=== PATIENT | female | born 1935 | race Caucasian/White ===

== ENCOUNTER 2017-01-13 14:38 | Inpatient (IN) ==
[2017-01-13] MEDS ORDERED: SODIUM CHLORIDE 0.9% 1,000 ML IV STA (14:54)
[2017-01-13 16:12] LABS: Basophils # 0.1 10*3/uL (0.0-0.2); Basophils % 0.8 % (0.0-0.8); Eosinophils # 0.5 10*3/uL (0.0-0.87); Eosinophils % 5.4 % (0.00-10.9); Hematocrit 30.9 VOL% (35.7-47.0); Hemoglobin 10.3 GM/DL (12.0-16.0); Immature Granulocytes % 0.4 %; Immature Granulocytes Absolute 0.04 #; Lymphocytes # 1.7 10*3/uL (1.4-4.0); Lymphocytes % 18.7 % (21.3-54.2); Mean Corpuscular HGB Conc 33.3 GM/DL (32-36); Mean Corpuscular Hemoglobin 29 PG (27-34); Mean Corpuscular Volume 87.5 FL (87-102); Monocytes # 0.9 10*3/uL (0.11-0.8); Monocytes % 9.7 % (1.7-12.7); Platelet Count 247 T/CUMM (130-400); Red Blood Count 3.53 MC/CUMM (3.8-5.5); Red Cell Distribution Width 15.1 % (9.3-17.3); White Blood Count 9.2 T/CUMM (4-12)
[2017-01-13 16:20] LABS: Apearance,Urine CLEAR (Clear); Bacteria,Urine Occasional /HPF (Few); Bilirubin,Urine Negative (Negative); Blood, Urine Negative (Negative); Glucose,Urine (UA) Negative (Negative); Hyaline Casts,Urine 4 /LPF (0-3); Ketones,Urine Negative (Negative); Mucus,Urine Occasional /LPF (Occasional); Nitrite,Urine Negative (Negative); Protein,Urine Negative; RBC,Urine 1 /HPF (0-4); Squamous Epithelial Cell,Urine Occasional /HPF (0-10); Urine Color Yellow (Yellow); Urine Specific Gravity 1.009 (1.001-1.035); WBC,Urine 1 /HPF (0-6)
[2017-01-13 16:52] LABS: Albumin 2.9 G/DL (3.4-5.0); Bilirubin,Total 0.6 MG/DL (0.2-1.0); Calcium 8.8 MG/DL (8.5-10.1); Osmolality,Calculated 283.3 MOS/KG (273-304); Potassium 3.3 MMOL/L (3.5-5.1); Total Protein 5.9 G/DL (6.4-8.3)
[2017-01-13] MEDS ORDERED: ONDANSETRON 4 MG/2 ML VIAL IV PRN (18:42)
[2017-01-13] MEDS ORDERED: MORPHINE 2 MG/1 ML SYRINGE IV PRN (18:42)
[2017-01-13] MEDS: SODIUM CHLORIDE 0.9% 1,000 ML IV SCH (18:53)
[2017-01-13] MEDS: OXYBUTYNIN 5 MG TABLET PO SCH (21:14)
[2017-01-13] MEDS: FERROUS GLUCONATE 240 MG TABLET PO SCH (21:14)
[2017-01-13] MEDS: DOCUSATE SODIUM 100 MG CAPSULE PO SCH (21:15)
[2017-01-13] MEDS: METOCLOPRAMIDE 5 MG TABLET PO SCH (21:15)
[2017-01-13] MEDS: ENOXAPARIN 40 MG/0.4 ML SYRINGE SUBCUT SCH (21:15)
[2017-01-13] MEDS: ATORVASTATIN 40 MG TABLET PO SCH (21:15)
[2017-01-14] MEDS: ACETAMINOPHEN 325 MG TABLET PO PRN (04:39)
[2017-01-14 06:38] LABS: Basophils # 0.1 10*3/uL (0.0-0.2); Basophils % 1.2 % (0.0-0.8); Eosinophils # 0.4 10*3/uL (0.0-0.87); Eosinophils % 6.6 % (0.00-10.9); Hematocrit 27.6 VOL% (35.7-47.0); Immature Granulocytes % 0.5 %; Immature Granulocytes Absolute 0.03 #; Lymphocytes # 1.4 10*3/uL (1.4-4.0); Mean Corpuscular HGB Conc 32.6 GM/DL (32-36); Mean Corpuscular Hemoglobin 29 PG (27-34); Mean Corpuscular Volume 88.7 FL (87-102); Mean Platelet Volume 9.4 FL (9.6-12.0); Monocytes # 0.6 10*3/uL (0.11-0.8); Monocytes % 9.7 % (1.7-12.7); Platelet Count 183 T/CUMM (130-400); Red Blood Count 3.11 MC/CUMM (3.8-5.5); Red Cell Distribution Width 15.1 % (9.3-17.3); White Blood Count 6.5 T/CUMM (4-12)
[2017-01-14 07:04] LABS: Albumin 2.6 G/DL (3.4-5.0); Bilirubin,Total 0.7 MG/DL (0.2-1.0); Calcium 8.2 MG/DL (8.5-10.1); Magnesium 2.1 MG/DL (1.8-2.4); Potassium 3.2 MMOL/L (3.5-5.1); Total Protein 5.1 G/DL (6.4-8.3)
[2017-01-14] MEDS ORDERED: PANTOPRAZOLE 40 MG TABLET PO SCH (09:00)
[2017-01-14] MEDS ORDERED: AZITHROMYCIN 250 MG TABLET PO ONE (09:00)
[2017-01-14] MEDS: ASPIRIN EC 81 MG TABLET PO SCH (10:20)
[2017-01-14] MEDS: CARVEDILOL 6.25 MG TABLET PO SCH (10:20)
[2017-01-14] MEDS: FERROUS GLUCONATE 240 MG TABLET PO SCH ×2 (10:20→21:53)
[2017-01-14] MEDS: OXYBUTYNIN 5 MG TABLET PO SCH ×3 (10:21→21:54)
[2017-01-14] MEDS: FUROSEMIDE 20 MG TABLET PO SCH (10:21)
[2017-01-14] MEDS: PANTOPRAZOLE 40 MG TABLET PO SCH (10:21)
[2017-01-14] MEDS: METOCLOPRAMIDE 5 MG TABLET PO SCH ×2 (10:22→21:54)
[2017-01-14] MEDS: ASCORBIC ACID 500 MG TABLET PO SCH (10:23)
[2017-01-14] MEDS: MULTIVITAMIN (BEROCCA) TABLET PO SCH (10:23)
[2017-01-14] MEDS: DOCUSATE SODIUM 100 MG CAPSULE PO SCH ×2 (10:23→21:54)
[2017-01-14] MEDS: POTASSIUM CHLORIDE 10 MEQ TABLET PO SCH ×3 (10:24→21:54)
[2017-01-14] MEDS: OMEGA 3 ACID ETHYL ESTERS 1 GM CAPSULE PO SCH (10:26)
[2017-01-14] MEDS: ZINC GLUCONATE 50 MG TABLET PO SCH (10:26)
[2017-01-14] MEDS: SODIUM CHLORIDE 0.9% 1,000 ML IV SCH ×2 (10:28→21:57)
[2017-01-14] MEDS: ATORVASTATIN 40 MG TABLET PO SCH (21:53)
[2017-01-14] MEDS: ENOXAPARIN 40 MG/0.4 ML SYRINGE SUBCUT SCH (21:54)
[2017-01-15] MEDS: METOCLOPRAMIDE 5 MG TABLET PO SCH ×2 (11:16→21:07)
[2017-01-15] MEDS: OXYBUTYNIN 5 MG TABLET PO SCH ×3 (11:16→21:07)
[2017-01-15] MEDS: FUROSEMIDE 20 MG TABLET PO SCH (11:16)
[2017-01-15] MEDS: AZITHROMYCIN 250 MG TABLET PO SCH (11:16)
[2017-01-15] MEDS: ASCORBIC ACID 500 MG TABLET PO SCH (11:17)
[2017-01-15] MEDS: POTASSIUM CHLORIDE 10 MEQ TABLET PO SCH ×3 (11:17→21:07)
[2017-01-15] MEDS: DOCUSATE SODIUM 100 MG CAPSULE PO SCH ×2 (11:17→21:07)
[2017-01-15] MEDS: FERROUS GLUCONATE 240 MG TABLET PO SCH ×2 (11:17→21:07)
[2017-01-15] MEDS: ASPIRIN EC 81 MG TABLET PO SCH (11:17)
[2017-01-15] MEDS: ZINC GLUCONATE 50 MG TABLET PO SCH (11:17)
[2017-01-15] MEDS: OMEGA 3 ACID ETHYL ESTERS 1 GM CAPSULE PO SCH (11:17)
[2017-01-15] MEDS: PANTOPRAZOLE 40 MG TABLET PO SCH (11:17)
[2017-01-15] MEDS: CARVEDILOL 6.25 MG TABLET PO SCH (11:17)
[2017-01-15] MEDS: MULTIVITAMIN (BEROCCA) TABLET PO SCH (11:17)
[2017-01-15 11:43] LABS: Basophils # 0.1 10*3/uL (0.0-0.2); Basophils % 0.8 % (0.0-0.8); Eosinophils # 0.6 10*3/uL (0.0-0.87); Eosinophils % 6.3 % (0.00-10.9); Hematocrit 31.2 VOL% (35.7-47.0); Hemoglobin 10.2 GM/DL (12.0-16.0); Immature Granulocytes % 0.6 %; Immature Granulocytes Absolute 0.05 #; Lymphocytes # 1.3 10*3/uL (1.4-4.0); Lymphocytes % 14.5 % (21.3-54.2); Mean Corpuscular HGB Conc 32.7 GM/DL (32-36); Mean Corpuscular Hemoglobin 29 PG (27-34); Mean Corpuscular Volume 88.6 FL (87-102); Mean Platelet Volume 9.1 FL (9.6-12.0); Monocytes # 0.6 10*3/uL (0.11-0.8); Monocytes % 7.1 % (1.7-12.7); Neutrophils # 6.3 10*3/uL (1.4-7.4); Neutrophils % 70.7 % (38.7-73.9); Platelet Count 212 T/CUMM (130-400); Red Blood Count 3.52 MC/CUMM (3.8-5.5); Red Cell Distribution Width 15.4 % (9.3-17.3); White Blood Count 8.9 T/CUMM (4-12)
[2017-01-15 12:12] LABS: Calcium 8.5 MG/DL (8.5-10.1); Osmolality,Calculated 281.3 MOS/KG (273-304); Potassium 3.9 MMOL/L (3.5-5.1)
[2017-01-15] MEDS: SODIUM CHLORIDE 0.9% 1,000 ML IV SCH (13:48)
[2017-01-15] MEDS: ATORVASTATIN 40 MG TABLET PO SCH (21:07)
[2017-01-15] MEDS: ENOXAPARIN 40 MG/0.4 ML SYRINGE SUBCUT SCH (21:07)
[2017-01-15] MEDS: ACETAMINOPHEN 325 MG TABLET PO PRN (21:08)
[2017-01-16] MEDS: SODIUM CHLORIDE 0.9% 1,000 ML IV SCH (03:45)
[2017-01-16 04:29] LABS: Calcium 8.6 MG/DL (8.5-10.1); Osmolality,Calculated 282.1 MOS/KG (273-304); Potassium 3.7 MMOL/L (3.5-5.1)
[2017-01-16] MEDS: FERROUS GLUCONATE 240 MG TABLET PO SCH (09:08)
[2017-01-16] MEDS: CARVEDILOL 6.25 MG TABLET PO SCH (09:08)
[2017-01-16] MEDS: AZITHROMYCIN 250 MG TABLET PO SCH (09:08)
[2017-01-16] MEDS: ZINC GLUCONATE 50 MG TABLET PO SCH (09:09)
[2017-01-16] MEDS: DOCUSATE SODIUM 100 MG CAPSULE PO SCH (09:09)
[2017-01-16] MEDS: OMEGA 3 ACID ETHYL ESTERS 1 GM CAPSULE PO SCH (09:09)
[2017-01-16] MEDS: OXYBUTYNIN 5 MG TABLET PO SCH (09:09)
[2017-01-16] MEDS: ASPIRIN EC 81 MG TABLET PO SCH (09:09)
[2017-01-16] MEDS: PANTOPRAZOLE 40 MG TABLET PO SCH (09:09)
[2017-01-16] MEDS: FUROSEMIDE 20 MG TABLET PO SCH (09:09)
[2017-01-16] MEDS: MULTIVITAMIN (BEROCCA) TABLET PO SCH (09:09)
[2017-01-16] MEDS: METOCLOPRAMIDE 5 MG TABLET PO SCH (09:09)
[2017-01-16] MEDS: ASCORBIC ACID 500 MG TABLET PO SCH (09:09)
[2017-01-16] MEDS: POTASSIUM CHLORIDE 10 MEQ TABLET PO SCH (09:17)
[2017-01-16 11:28] LABS: Apearance,Urine Slightly Hazy (Clear); Bilirubin,Urine Negative (Negative); Blood, Urine Moderate mg/dL (Negative); Glucose,Urine (UA) Negative (Negative); Ketones,Urine Negative (Negative); Mucus,Urine Occasional /LPF (Occasional); Nitrite,Urine Negative (Negative); Protein,Urine Negative; RBC,Urine 5 /HPF (0-4); Squamous Epithelial Cell,Urine Occasional /HPF (0-10); Urine Color Yellow (Yellow); Urine Specific Gravity 1.009 (1.001-1.035); Urine Urobilinogen < 2.0 EU/DL (0.2-1.0); WBC,Urine 1 /HPF (0-6)
[2017-01-16 21:21] VITALS: BP 121/85
== END 2017-01-16 14:00 | disposition home or self-care (01) | DRG 641 ==
LOC: N.ED 14:38 → N.EDINP 17:02 → N.2E 18:41
PROVIDERS: ADMIT Family Medicine; ATTEND Family Medicine

== ENCOUNTER 2018-05-12 13:24 | Inpatient (IN) ==
[2018-05-12] MEDS ORDERED: fentaNYL 100 MCG/2 ML VIAL IV STA (15:10)
[2018-05-12] MEDS ORDERED: ONDANSETRON 4 MG/2 ML VIAL IV STA (15:10)
[2018-05-12 16:06] LABS: Basophils # 0.1 10*3/uL (0.0-0.2); Basophils % 0.5 % (0.0-0.8); Eosinophils # 0.4 10*3/uL (0.0-0.87); Eosinophils % 3.4 % (0.00-10.9); Hematocrit 28.2 VOL% (35.7-47.0); Hemoglobin 9.1 GM/DL (12.0-16.0); Immature Granulocytes % 0.5 %; Immature Granulocytes Absolute 0.06 #; Lymphocytes # 1.3 10*3/uL (1.4-4.0); Lymphocytes % 11.5 % (21.3-54.2); Mean Corpuscular HGB Conc 32.3 GM/DL (32-36); Mean Corpuscular Hemoglobin 31 PG (27-34); Mean Corpuscular Volume 94.9 FL (87-102); Mean Platelet Volume 9.6 FL (9.6-12.0); Neutrophils # 8.6 10*3/uL (1.4-7.4); Neutrophils % 75.1 % (38.7-73.9); Platelet Count 184 T/CUMM (130-400); Red Blood Count 2.97 MC/CUMM (3.8-5.5); Red Cell Distribution Width 13.4 % (9.3-17.3); White Blood Count 11.4 T/CUMM (4-12)
[2018-05-12 16:22] LABS: INR 1.1; PT Patient Result 12.4 SECS; Partial Thromboplastin Time 27.3 SECS (0-40)
[2018-05-12 16:28] LABS: Albumin 3.2 G/DL (3.4-5.0); Bilirubin,Total 0.4 MG/DL (0.2-1.0); Calcium 8.5 MG/DL (8.5-10.1); Osmolality,Calculated 280.7 MOS/KG (273-304); Potassium 3.9 MMOL/L (3.5-5.1); Total Protein 6.3 G/DL (6.4-8.3)
[2018-05-12] MEDS ORDERED: ONDANSETRON 4 MG/2 ML VIAL IV PRN (17:09)
[2018-05-12] MEDS: SODIUM CHLORIDE 0.9% 1,000 ML IV SCH (17:53)
[2018-05-12] MEDS: FERROUS SULFATE 325 MG TABLET PO SCH (20:56)
[2018-05-12] MEDS: ATORVASTATIN 40 MG TABLET PO SCH (20:56)
[2018-05-12] MEDS: DOCUSATE SODIUM 100 MG CAPSULE PO SCH (20:56)
[2018-05-12] MEDS: METOCLOPRAMIDE 5 MG TABLET PO SCH (20:56)
[2018-05-12] MEDS: OXYBUTYNIN 5 MG TABLET PO SCH (20:56)
[2018-05-12] MEDS: ACETAMINOPHEN 325 MG TABLET PO PRN (20:58)
[2018-05-12] MEDS ORDERED: DOCUSATE SODIUM 100 MG CAPSULE PO SCH (21:00)
[2018-05-13] MEDS: SODIUM CHLORIDE 0.9% 1,000 ML IV SCH ×3 (01:42→21:18)
[2018-05-13 05:36] LABS: Basophils % 0.6 % (0.0-0.8); Eosinophils # 0.5 10*3/uL (0.0-0.87); Eosinophils % 7.7 % (0.00-10.9); Hematocrit 23.6 VOL% (35.7-47.0); Hemoglobin 7.6 GM/DL (12.0-16.0); Immature Granulocytes % 0.3 %; Immature Granulocytes Absolute 0.02 #; Lymphocytes # 0.9 10*3/uL (1.4-4.0); Lymphocytes % 14.4 % (21.3-54.2); Mean Corpuscular HGB Conc 32.2 GM/DL (32-36); Mean Corpuscular Hemoglobin 31 PG (27-34); Mean Corpuscular Volume 95.2 FL (87-102); Mean Platelet Volume 9.9 FL (9.6-12.0); Monocytes # 0.7 10*3/uL (0.11-0.8); Monocytes % 11.6 % (1.7-12.7); Neutrophils # 4.1 10*3/uL (1.4-7.4); Neutrophils % 65.4 % (38.7-73.9); Red Blood Count 2.48 MC/CUMM (3.8-5.5); Red Cell Distribution Width 13.8 % (9.3-17.3)
[2018-05-13 05:40] LABS: Platelet Count 140 T/CUMM (130-400); White Blood Count 6.2 T/CUMM (4-12)
[2018-05-13 05:44] LABS: Calcium 7.7 MG/DL (8.5-10.1); Osmolality,Calculated 283.4 MOS/KG (273-304); Potassium 3.7 MMOL/L (3.5-5.1)
[2018-05-13] MEDS ORDERED: ceFAZolin 2,000 MG in PREMIX 1 EACH IV ONE (07:21)
[2018-05-13] MEDS ORDERED: ceFAZolin 1,000 MG VIAL ONE (08:03)
[2018-05-13] MEDS ORDERED: SODIUM CHLORIDE 0.9% 1,000 ML IV PRN (08:04)
[2018-05-13] MEDS ORDERED: ONDANSETRON 4 MG/2 ML VIAL IV PRN (08:53)
[2018-05-13] MEDS: OXYBUTYNIN 5 MG TABLET PO SCH ×3 (09:00→21:18)
[2018-05-13] MEDS ORDERED: PANTOPRAZOLE 40 MG TABLET PO SCH (09:00)
[2018-05-13] MEDS ORDERED: fentaNYL 100 MCG/2 ML VIAL ONE (09:19)
[2018-05-13] MEDS ORDERED: SEVOFLURANE 1 UNIT/15 MINUTE INH ONE (09:19)
[2018-05-13] MEDS ORDERED: PROPOFOL 200 MG/20 ML VIAL IV ONE (09:19)
[2018-05-13] MEDS ORDERED: MIDAZOLAM 2 MG/2 ML VIAL ONE (09:20)
[2018-05-13] MEDS ORDERED: ONDANSETRON 4 MG/2 ML VIAL ONE (09:20)
[2018-05-13] MEDS ORDERED: PHENYLEPHRINE 1 MG/10 ML SYRINGE IV ONE (09:20)
[2018-05-13] MEDS ORDERED: SODIUM CHLORIDE 0.9% 500 ML IV ONE (09:20)
[2018-05-13] MEDS ORDERED: ROCURONIUM 100 MG/10 ML VIAL IV ONE (09:20)
[2018-05-13] MEDS ORDERED: ACETAMINOPHEN 1,000 MG/100 ML VIAL IV ONE (09:20)
[2018-05-13] MEDS: MELOXICAM 7.5 MG TABLET PO SCH (10:38)
[2018-05-13] MEDS: ASPIRIN CHEW 81 MG TABLET PO SCH (10:39)
[2018-05-13] MEDS: VITAMIN E 400 UNIT CAPSULE PO SCH (10:39)
[2018-05-13] MEDS: METOCLOPRAMIDE 5 MG TABLET PO SCH ×2 (10:39→21:18)
[2018-05-13] MEDS: FUROSEMIDE 20 MG TABLET PO SCH (10:40)
[2018-05-13] MEDS: FLUoxetine 20 MG CAPSULE PO SCH (10:40)
[2018-05-13] MEDS: OMEGA 3 ACID ETHYL ESTERS 1 GM CAPSULE PO SCH (10:40)
[2018-05-13] MEDS: FERROUS SULFATE 325 MG TABLET PO SCH ×2 (10:40→21:18)
[2018-05-13] MEDS: PANTOPRAZOLE 40 MG TABLET PO SCH (10:41)
[2018-05-13] MEDS: DOCUSATE SODIUM 100 MG CAPSULE PO SCH ×2 (10:41→21:18)
[2018-05-13] MEDS: ASCORBIC ACID 500 MG TABLET PO SCH (10:41)
[2018-05-13] MEDS: ZINC GLUCONATE 50 MG TABLET PO SCH (10:41)
[2018-05-13] MEDS: CARVEDILOL 6.25 MG TABLET PO SCH (10:41)
[2018-05-13] MEDS: ENOXAPARIN 40 MG/0.4 ML SYRINGE SUBCUT SCH (10:42)
[2018-05-13] MEDS: ceFAZolin 1,000 MG in SYRINGE 1 EACH IV SCH ×2 (16:04→23:25)
[2018-05-13] MEDS: oxyCODONE/ACETAMINOPHEN 5-325 MG TABLET PO PRN ×2 (17:27→21:18)
[2018-05-13] MEDS: ATORVASTATIN 40 MG TABLET PO SCH (21:18)
[2018-05-14] MEDS: oxyCODONE/ACETAMINOPHEN 5-325 MG TABLET PO PRN ×3 (01:41→20:21)
[2018-05-14] MEDS: SODIUM CHLORIDE 0.9% 1,000 ML IV SCH (05:46)
[2018-05-14 05:47] LABS: Basophils % 0.6 % (0.0-0.8); Eosinophils # 0.8 10*3/uL (0.0-0.87); Eosinophils % 10.8 % (0.00-10.9); Hematocrit 22.6 VOL% (35.7-47.0); Immature Granulocytes % 0.4 %; Immature Granulocytes Absolute 0.03 #; Lymphocytes # 1.2 10*3/uL (1.4-4.0); Lymphocytes % 16.8 % (21.3-54.2); Mean Corpuscular Hemoglobin 29 PG (27-34); Mean Platelet Volume 9.7 FL (9.6-12.0); Monocytes # 0.8 10*3/uL (0.11-0.8); Monocytes % 10.9 % (1.7-12.7); Neutrophils # 4.2 10*3/uL (1.4-7.4); Neutrophils % 60.5 % (38.7-73.9); Platelet Count 113 T/CUMM (130-400); Red Blood Count 2.38 MC/CUMM (3.8-5.5); Red Cell Distribution Width 16.2 % (9.3-17.3)
[2018-05-14 06:00] LABS: Calcium 7.4 MG/DL (8.5-10.1); Potassium 4.1 MMOL/L (3.5-5.1)
[2018-05-14] MEDS: ceFAZolin 1,000 MG in SYRINGE 1 EACH IV SCH ×3 (08:55→23:46)
[2018-05-14] MEDS: ZINC GLUCONATE 50 MG TABLET PO SCH (08:56)
[2018-05-14] MEDS: METOCLOPRAMIDE 5 MG TABLET PO SCH ×2 (08:56→20:16)
[2018-05-14] MEDS: FLUoxetine 20 MG CAPSULE PO SCH (08:56)
[2018-05-14] MEDS: MELOXICAM 7.5 MG TABLET PO SCH (08:56)
[2018-05-14] MEDS: FUROSEMIDE 20 MG TABLET PO SCH (08:56)
[2018-05-14] MEDS: FERROUS SULFATE 325 MG TABLET PO SCH ×2 (08:56→20:16)
[2018-05-14] MEDS: CARVEDILOL 6.25 MG TABLET PO SCH (08:57)
[2018-05-14] MEDS: VITAMIN E 400 UNIT CAPSULE PO SCH (08:57)
[2018-05-14] MEDS: ASCORBIC ACID 500 MG TABLET PO SCH (08:57)
[2018-05-14] MEDS: OMEGA 3 ACID ETHYL ESTERS 1 GM CAPSULE PO SCH (08:57)
[2018-05-14] MEDS: OXYBUTYNIN 5 MG TABLET PO SCH ×3 (08:57→20:16)
[2018-05-14] MEDS: DOCUSATE SODIUM 100 MG CAPSULE PO SCH ×2 (08:57→20:16)
[2018-05-14] MEDS: ENOXAPARIN 40 MG/0.4 ML SYRINGE SUBCUT SCH (08:58)
[2018-05-14] MEDS: ASPIRIN CHEW 81 MG TABLET PO SCH (08:58)
[2018-05-14] MEDS: PANTOPRAZOLE 40 MG TABLET PO SCH (08:58)
[2018-05-14] MEDS ORDERED: SODIUM CHLORIDE 0.9% 1,000 ML IV PRN (10:03)
[2018-05-14] MEDS: ACETAMINOPHEN 325 MG TABLET PO PRN (13:19)
[2018-05-14 18:54] LABS: Hematocrit 26.3 VOL% (35.7-47.0); Hemoglobin 8.4 GM/DL (12.0-16.0)
[2018-05-14] MEDS: ATORVASTATIN 40 MG TABLET PO SCH (20:16)
[2018-05-15] MEDS: ceFAZolin 1,000 MG in SYRINGE 1 EACH IV SCH (08:59)
[2018-05-15] MEDS: FLUoxetine 20 MG CAPSULE PO SCH (09:00)
[2018-05-15] MEDS: CARVEDILOL 6.25 MG TABLET PO SCH (09:00)
[2018-05-15] MEDS: OXYBUTYNIN 5 MG TABLET PO SCH ×3 (09:00→21:04)
[2018-05-15] MEDS: PANTOPRAZOLE 40 MG TABLET PO SCH (09:00)
[2018-05-15] MEDS: MELOXICAM 7.5 MG TABLET PO SCH (09:00)
[2018-05-15] MEDS: OMEGA 3 ACID ETHYL ESTERS 1 GM CAPSULE PO SCH (09:00)
[2018-05-15] MEDS: ASPIRIN CHEW 81 MG TABLET PO SCH (09:00)
[2018-05-15] MEDS: DOCUSATE SODIUM 100 MG CAPSULE PO SCH ×2 (09:00→21:04)
[2018-05-15] MEDS: METOCLOPRAMIDE 5 MG TABLET PO SCH ×2 (09:00→21:04)
[2018-05-15] MEDS: FUROSEMIDE 20 MG TABLET PO SCH (09:00)
[2018-05-15] MEDS: FERROUS SULFATE 325 MG TABLET PO SCH ×2 (09:00→21:04)
[2018-05-15] MEDS: VITAMIN E 400 UNIT CAPSULE PO SCH (09:00)
[2018-05-15] MEDS: ASCORBIC ACID 500 MG TABLET PO SCH (09:01)
[2018-05-15] MEDS: ENOXAPARIN 40 MG/0.4 ML SYRINGE SUBCUT SCH (09:02)
[2018-05-15] MEDS: ZINC GLUCONATE 50 MG TABLET PO SCH (09:42)
[2018-05-15] MEDS: oxyCODONE/ACETAMINOPHEN 5-325 MG TABLET PO PRN ×2 (13:51→21:04)
[2018-05-15] MEDS: ATORVASTATIN 40 MG TABLET PO SCH (21:04)
[2018-05-16 04:51] LABS: Apearance,Urine Slightly Hazy (Clear); Bacteria,Urine Occasional /HPF (Few); Bilirubin,Urine Negative (Negative); Blood, Urine Negative (Negative); Glucose,Urine (UA) Negative (Negative); Hyaline Casts,Urine 3 /LPF (0-3); Ketones,Urine Negative (Negative); Mucus,Urine Occasional /LPF (Occasional); Nitrite,Urine Negative (Negative); Protein,Urine Negative; RBC,Urine 1 /HPF (0-4); Squamous Epithelial Cell,Urine Occasional /HPF (0-10); Urine Color Yellow (Yellow); Urine Specific Gravity 1.014 (1.001-1.035); Urine Urobilinogen < 2.0 EU/DL (0.2-1.0); WBC,Urine 4 /HPF (0-6)
[2018-05-16 05:24] LABS: Basophils # 0.1 10*3/uL (0.0-0.2); Basophils % 0.8 % (0.0-0.8); Eosinophils # 0.7 10*3/uL (0.0-0.87); Eosinophils % 9.3 % (0.00-10.9); Hematocrit 25.1 VOL% (35.7-47.0); Immature Granulocytes % 0.4 %; Immature Granulocytes Absolute 0.03 #; Lymphocytes # 1.3 10*3/uL (1.4-4.0); Lymphocytes % 17.3 % (21.3-54.2); Mean Corpuscular HGB Conc 31.9 GM/DL (32-36); Mean Corpuscular Hemoglobin 30 PG (27-34); Mean Corpuscular Volume 93.3 FL (87-102); Mean Platelet Volume 10.3 FL (9.6-12.0); Monocytes # 0.9 10*3/uL (0.11-0.8); Monocytes % 11.9 % (1.7-12.7); Neutrophils # 4.7 10*3/uL (1.4-7.4); Neutrophils % 60.3 % (38.7-73.9); Platelet Count 139 T/CUMM (130-400); Red Blood Count 2.69 MC/CUMM (3.8-5.5); Red Cell Distribution Width 15.9 % (9.3-17.3); White Blood Count 7.7 T/CUMM (4-12)
[2018-05-16 05:28] LABS: Calcium 7.8 MG/DL (8.5-10.1); Potassium 3.9 MMOL/L (3.5-5.1)
[2018-05-16 08:18] VITALS: BP 143/67
[2018-05-16] MEDS: METOCLOPRAMIDE 5 MG TABLET PO SCH (10:07)
[2018-05-16] MEDS: OMEGA 3 ACID ETHYL ESTERS 1 GM CAPSULE PO SCH (10:08)
[2018-05-16] MEDS: ASPIRIN CHEW 81 MG TABLET PO SCH (10:09)
[2018-05-16] MEDS: FERROUS SULFATE 325 MG TABLET PO SCH (10:09)
[2018-05-16] MEDS: VITAMIN E 400 UNIT CAPSULE PO SCH (10:09)
[2018-05-16] MEDS: ASCORBIC ACID 500 MG TABLET PO SCH (10:09)
[2018-05-16] MEDS: DOCUSATE SODIUM 100 MG CAPSULE PO SCH (10:09)
[2018-05-16] MEDS: PANTOPRAZOLE 40 MG TABLET PO SCH (10:09)
[2018-05-16] MEDS: OXYBUTYNIN 5 MG TABLET PO SCH (10:09)
[2018-05-16] MEDS: MELOXICAM 7.5 MG TABLET PO SCH (10:09)
[2018-05-16] MEDS: FUROSEMIDE 20 MG TABLET PO SCH (10:10)
[2018-05-16] MEDS: CARVEDILOL 6.25 MG TABLET PO SCH (10:10)
[2018-05-16] MEDS: FLUoxetine 20 MG CAPSULE PO SCH (10:10)
[2018-05-16] MEDS: ENOXAPARIN 40 MG/0.4 ML SYRINGE SUBCUT SCH (10:10)
[2018-05-16] MEDS: ZINC GLUCONATE 50 MG TABLET PO SCH (10:17)
== END 2018-05-16 11:45 | DRG 481 ==
LOC: EDBD → EDUNIT# → N.ED 13:24 → N.EDINP 15:11 → N.3E 17:03
PROVIDERS: ADMIT Family Medicine; ATTEND Family Medicine

== ENCOUNTER 2019-04-13 09:15 | Inpatient (IN) ==
[2019-04-13] MEDS ORDERED: ACETAMINOPHEN 325 MG TABLET PO PRN (09:58)
[2019-04-13] MEDS ORDERED: ONDANSETRON 4 MG/2 ML VIAL IV PRN (09:58)
[2019-04-13] MEDS ORDERED: MAGNESIUM HYDROXIDE SUSP 30 ML UDCUP PO PRN (09:58)
[2019-04-13] MEDS ORDERED: SODIUM CHLORIDE 0.9% 1,000 ML IV PRN (10:56)
[2019-04-13] MEDS ORDERED: oxyCODONE/ACETAMINOPHEN 5-325 MG TABLET PO PRN (10:58)
[2019-04-13] MEDS: PANTOPRAZOLE 40 MG TABLET PO SCH (11:31)
[2019-04-13] MEDS: FLUoxetine 20 MG CAPSULE PO SCH (11:32)
[2019-04-13] MEDS: carvediloL 6.25 MG TABLET PO SCH (11:32)
[2019-04-13] MEDS: ASCORBIC ACID 500 MG TABLET PO SCH (11:32)
[2019-04-13 11:46] LABS: Basophils # 0.1 10*3/uL (0.0-0.2); Basophils % 0.6 % (0.0-0.8); Eosinophils # 0.2 10*3/uL (0.0-0.87); Eosinophils % 2.7 % (0.00-10.9); Hematocrit 21.1 VOL% (35.7-47.0); Immature Granulocytes % 0.5 %; Immature Granulocytes Absolute 0.04 #; Lymphocytes # 1.7 10*3/uL (1.4-4.0); Lymphocytes % 19.5 % (21.3-54.2); Mean Corpuscular HGB Conc 29.4 GM/DL (32-36); Mean Corpuscular Volume 105.5 FL (87-102); Mean Platelet Volume 9.9 FL (9.6-12.0); Monocytes % 10.3 % (1.7-12.7); Neutrophils % 66.4 % (38.7-73.9); Platelet Count 234 T/CUMM (130-400); White Blood Count 8.7 T/CUMM (4-12)
[2019-04-13 11:55] LABS: Hemoglobin 6.2 GM/DL (12.0-16.0)
[2019-04-13 12:10] LABS: Apearance,Urine CLEAR (Clear); Bacteria,Urine Occasional /HPF (Few); Bilirubin,Urine Negative (Negative); Blood, Urine Negative (Negative); Glucose,Urine (UA) Negative (Negative); Hyaline Casts,Urine 6 /LPF (0-3); Ketones,Urine Negative (Negative); Mucus,Urine Occasional /LPF (Occasional); Nitrite,Urine Positive (Negative); Protein,Urine Negative; RBC,Urine <1 /HPF (0-4); Squamous Epithelial Cell,Urine Occasional /HPF (0-10); Urine Color Yellow (Yellow); Urine Specific Gravity 1.008 (1.001-1.035); Urine Urobilinogen < 2.0 EU/DL (0.2-1.0); WBC,Urine <1 /HPF (0-6)
[2019-04-13 12:10] LABS: Alanine Aminotransferase 11 U/L (13-56); Albumin 2.8 G/DL (3.4-5.0); Alkaline Phosphatase 67 U/L (45-117); Aspartate Amino Transferase 10 U/L (0-37); Bilirubin,Total < 0.39 MG/DL (0.2-1.0); Blood Urea Nitrogen 18 MG/DL (7-18); Calcium 8.1 MG/DL (8.5-10.1); Estimated Glom Filtration Rate 38 ML/MIN; Glucose 99 MG/DL (74-106); Osmolality,Calculated 282.3 MOS/KG (273-304); Total Protein 5.4 G/DL (6.4-8.3)
[2019-04-13 12:22] LABS: Folate 11.7 NG/ML (5.4-24.0); Vitamin B12 351 PG/ML (211-911)
[2019-04-13 12:28] LABS: Anisocytosis 2+; Hypochromasia Slight; Macrocytosis 2+; Platelet Estimate Normal
[2019-04-13 12:29] LABS: Polychromasia Few
[2019-04-13 12:58] LABS: Sedimentation Rate-Westergren 12 MM/HR (0-30)
[2019-04-13] MEDS: SODIUM CHLORIDE 0.45% 1,000 ML IV SCH (13:22)
[2019-04-13] MEDS: OXYBUTYNIN 5 MG TABLET PO SCH ×2 (15:09→21:13)
[2019-04-13] MEDS: ATORVASTATIN 40 MG TABLET PO SCH (21:13)
[2019-04-13] MEDS: DOCUSATE SODIUM 100 MG CAPSULE PO SCH (21:13)
[2019-04-13] MEDS: METOCLOPRAMIDE 5 MG TABLET PO SCH (21:13)
[2019-04-13] MEDS: FERROUS SULFATE 325 MG TABLET PO SCH (21:13)
[2019-04-14 07:12] LABS: Basophils # 0.1 10*3/uL (0.0-0.2); Basophils % 1.1 % (0.0-0.8); Eosinophils # 0.4 10*3/uL (0.0-0.87); Eosinophils % 6.9 % (0.00-10.9); Hematocrit 27.8 VOL% (35.7-47.0); Hemoglobin 8.7 GM/DL (12.0-16.0); Immature Granulocytes % 0.2 %; Immature Granulocytes Absolute 0.01 #; Lymphocytes # 0.8 10*3/uL (1.4-4.0); Mean Corpuscular HGB Conc 31.3 GM/DL (32-36); Mean Corpuscular Volume 94.9 FL (87-102); Mean Platelet Volume 9.8 FL (9.6-12.0); Monocytes % 10.5 % (1.7-12.7); Neutrophils % 67.3 % (38.7-73.9); Platelet Count 178 T/CUMM (130-400); Red Blood Count 2.93 MC/CUMM (3.8-5.5); Red Cell Distribution Width 18.9 % (9.3-17.3); White Blood Count 5.6 T/CUMM (4-12)
[2019-04-14] MEDS: PANTOPRAZOLE 40 MG TABLET PO SCH (09:06)
[2019-04-14] MEDS: OMEGA 3 ACID ETHYL ESTERS 1 GM CAPSULE PO SCH (09:06)
[2019-04-14] MEDS: FLUoxetine 20 MG CAPSULE PO SCH (09:07)
[2019-04-14] MEDS: ASCORBIC ACID 500 MG TABLET PO SCH (09:07)
[2019-04-14] MEDS: CHOLECALCIFEROL 5,000 UNIT TABLET PO SCH (09:07)
[2019-04-14] MEDS: carvediloL 6.25 MG TABLET PO SCH (09:07)
[2019-04-14] MEDS: OXYBUTYNIN 5 MG TABLET PO SCH ×3 (09:07→21:15)
[2019-04-14] MEDS: DOCUSATE SODIUM 100 MG CAPSULE PO SCH ×2 (09:07→21:15)
[2019-04-14] MEDS: METOCLOPRAMIDE 5 MG TABLET PO SCH ×2 (09:07→21:15)
[2019-04-14] MEDS: FERROUS SULFATE 325 MG TABLET PO SCH ×2 (09:07→21:15)
[2019-04-14] MEDS: SODIUM CHLORIDE 0.45% 1,000 ML IV SCH ×2 (09:08→14:17)
[2019-04-14] MEDS ORDERED: SODIUM CHLORIDE 0.9% 1,000 ML IV PRN (10:10)
[2019-04-14] MEDS: FUROSEMIDE 20 MG TABLET PO SCH (14:17)
[2019-04-14 15:20] LABS: Hematocrit 30.6 VOL% (35.7-47.0); Hemoglobin 9.6 GM/DL (12.0-16.0)
[2019-04-14] MEDS: ATORVASTATIN 40 MG TABLET PO SCH (21:15)
[2019-04-14] MEDS: carvediloL 12.5 MG TABLET PO SCH (21:15)
[2019-04-15] MEDS: SODIUM CHLORIDE 0.45% 1,000 ML IV SCH ×2 (02:15→14:30)
[2019-04-15 05:43] LABS: Basophils # 0.1 10*3/uL (0.0-0.2); Eosinophils # 0.4 10*3/uL (0.0-0.87); Eosinophils % 7.4 % (0.00-10.9); Hematocrit 30.6 VOL% (35.7-47.0); Hemoglobin 9.8 GM/DL (12.0-16.0); Immature Granulocytes % 0.5 %; Immature Granulocytes Absolute 0.03 #; Lymphocytes # 0.9 10*3/uL (1.4-4.0); Lymphocytes % 15.1 % (21.3-54.2); Mean Corpuscular Volume 94.2 FL (87-102); Mean Platelet Volume 9.9 FL (9.6-12.0); Platelet Count 156 T/CUMM (130-400); Red Blood Count 3.25 MC/CUMM (3.8-5.5); White Blood Count 5.9 T/CUMM (4-12)
[2019-04-15 05:50] LABS: Albumin 2.5 G/DL (3.4-5.0); Bilirubin,Total 0.9 MG/DL (0.2-1.0); Calcium 8.2 MG/DL (8.5-10.1); Osmolality,Calculated 281.3 MOS/KG (273-304); Total Protein 4.7 G/DL (6.4-8.3)
[2019-04-15] MEDS: METOCLOPRAMIDE 5 MG TABLET PO SCH ×2 (08:54→20:23)
[2019-04-15] MEDS: DOCUSATE SODIUM 100 MG CAPSULE PO SCH ×2 (08:54→20:24)
[2019-04-15] MEDS: FLUoxetine 20 MG CAPSULE PO SCH (08:54)
[2019-04-15] MEDS: CHOLECALCIFEROL 5,000 UNIT TABLET PO SCH (08:54)
[2019-04-15] MEDS: PANTOPRAZOLE 40 MG TABLET PO SCH (08:54)
[2019-04-15] MEDS: ASCORBIC ACID 500 MG TABLET PO SCH (08:54)
[2019-04-15] MEDS: OXYBUTYNIN 5 MG TABLET PO SCH ×3 (08:54→20:23)
[2019-04-15] MEDS: FERROUS SULFATE 325 MG TABLET PO SCH ×2 (08:54→20:23)
[2019-04-15] MEDS: OMEGA 3 ACID ETHYL ESTERS 1 GM CAPSULE PO SCH (08:54)
[2019-04-15] MEDS: FUROSEMIDE 20 MG TABLET PO SCH (08:54)
[2019-04-15] MEDS: carvediloL 12.5 MG TABLET PO SCH ×2 (08:57→20:23)
[2019-04-15 14:09] LABS: INR 1.1; PT Patient Result 12.3 SECS (9.6-12.2); Partial Thromboplastin Time 27.7 SECS (20.8-36.0)
[2019-04-15] MEDS: POTASSIUM CHLORIDE RIDER 10 MEQ in PREMIX 1 EACH IV SCH ×2 (16:43→17:49)
[2019-04-15] MEDS: SODIUM CHLOR 0.45% KCL 20 MEQ 20 MEQ/1,000 ML BAG IV SCH (16:43)
[2019-04-15] MEDS: cloNIDine 0.1 MG TABLET PO SCH (20:23)
[2019-04-15] MEDS: ATORVASTATIN 40 MG TABLET PO SCH (20:24)
[2019-04-15] MEDS: SULFAMETHOX/TRIMETHOPRIM 800-160 MG TABLET PO SCH (20:24)
[2019-04-16 05:07] LABS: Basophils # 0.1 10*3/uL (0.0-0.2); Basophils % 1.3 % (0.0-0.8); Eosinophils # 0.4 10*3/uL (0.0-0.87); Eosinophils % 7.6 % (0.00-10.9); Hematocrit 30.2 VOL% (35.7-47.0); Hemoglobin 9.4 GM/DL (12.0-16.0); Immature Granulocytes % 0.4 %; Immature Granulocytes Absolute 0.02 #; Lymphocytes # 0.8 10*3/uL (1.4-4.0); Lymphocytes % 14.8 % (21.3-54.2); Mean Corpuscular HGB Conc 31.1 GM/DL (32-36); Mean Corpuscular Volume 95.9 FL (87-102); Mean Platelet Volume 9.7 FL (9.6-12.0); Monocytes % 12.7 % (1.7-12.7); Neutrophils % 63.2 % (38.7-73.9); Platelet Count 151 T/CUMM (130-400); Red Blood Count 3.15 MC/CUMM (3.8-5.5); Red Cell Distribution Width 17.1 % (9.3-17.3); White Blood Count 5.4 T/CUMM (4-12)
[2019-04-16 05:22] LABS: Albumin 2.2 G/DL (3.4-5.0); Bilirubin,Total 0.8 MG/DL (0.2-1.0); Calcium 8.1 MG/DL (8.5-10.1); Osmolality,Calculated 281.3 MOS/KG (273-304); Total Protein 4.5 G/DL (6.4-8.3)
[2019-04-16] MEDS ORDERED: LIDOCAINE 100 MG/5 ML SYRINGE ONE (09:00)
[2019-04-16] MEDS ORDERED: propofoL 200 MG/20 ML VIAL IV ONE (09:00)
[2019-04-16] MEDS: POLYETHYLENE GLYCOL POWDER 17 GM PACK PO SCH (09:58)
[2019-04-16] MEDS: DOCUSATE SODIUM 100 MG CAPSULE PO SCH (09:58)
[2019-04-16] MEDS: carvediloL 12.5 MG TABLET PO SCH ×2 (10:00→20:58)
[2019-04-16 10:15] LABS: Hemoglobin A1 (Alkaline) 96.9 % (96.5-98.5); Hemoglobin A2 (Alkaline) 3.1 % (1.5-3.5)
[2019-04-16] MEDS ORDERED: LACTATED RINGERS 1,000 ML IV SCH (14:00)
[2019-04-16] MEDS: ASCORBIC ACID 500 MG TABLET PO SCH (14:34)
[2019-04-16] MEDS: FLUoxetine 20 MG CAPSULE PO SCH (14:34)
[2019-04-16] MEDS: PANTOPRAZOLE 40 MG TABLET PO SCH (14:34)
[2019-04-16] MEDS: CHOLECALCIFEROL 5,000 UNIT TABLET PO SCH (14:34)
[2019-04-16] MEDS: SULFAMETHOX/TRIMETHOPRIM 800-160 MG TABLET PO SCH ×2 (14:34→20:58)
[2019-04-16] MEDS: FERROUS SULFATE 325 MG TABLET PO SCH ×2 (14:35→20:58)
[2019-04-16] MEDS: FUROSEMIDE 20 MG TABLET PO SCH (14:35)
[2019-04-16] MEDS: OXYBUTYNIN 5 MG TABLET PO SCH ×3 (14:36→20:58)
[2019-04-16] MEDS: METOCLOPRAMIDE 5 MG TABLET PO SCH ×2 (14:36→20:58)
[2019-04-16] MEDS: OMEGA 3 ACID ETHYL ESTERS 1 GM CAPSULE PO SCH (14:37)
[2019-04-16] MEDS: SODIUM CHLOR 0.45% KCL 20 MEQ 20 MEQ/1,000 ML BAG IV SCH (15:32)
[2019-04-16] MEDS: ATORVASTATIN 40 MG TABLET PO SCH (20:58)
[2019-04-16] MEDS: cloNIDine 0.1 MG TABLET PO SCH (20:58)
[2019-04-17] MEDS: SODIUM CHLOR 0.45% KCL 20 MEQ 20 MEQ/1,000 ML BAG IV SCH (05:21)
[2019-04-17 07:41] VITALS: BP 133/50
[2019-04-17] MEDS: POLYETHYLENE GLYCOL POWDER 17 GM PACK PO SCH (09:34)
[2019-04-17] MEDS: FUROSEMIDE 20 MG TABLET PO SCH (09:35)
[2019-04-17] MEDS: carvediloL 12.5 MG TABLET PO SCH (09:35)
[2019-04-17] MEDS: SULFAMETHOX/TRIMETHOPRIM 800-160 MG TABLET PO SCH (09:35)
[2019-04-17] MEDS: FERROUS SULFATE 325 MG TABLET PO SCH (09:35)
[2019-04-17] MEDS: OMEGA 3 ACID ETHYL ESTERS 1 GM CAPSULE PO SCH (09:36)
[2019-04-17] MEDS: CHOLECALCIFEROL 5,000 UNIT TABLET PO SCH (09:36)
[2019-04-17] MEDS: FLUoxetine 20 MG CAPSULE PO SCH (09:36)
[2019-04-17] MEDS: ASCORBIC ACID 500 MG TABLET PO SCH (09:36)
[2019-04-17] MEDS: OXYBUTYNIN 5 MG TABLET PO SCH (09:36)
[2019-04-17] MEDS: METOCLOPRAMIDE 5 MG TABLET PO SCH (09:36)
[2019-04-17] MEDS: PANTOPRAZOLE 40 MG TABLET PO SCH (09:37)
== END 2019-04-17 10:12 | disposition home or self-care (01) | DRG 378 ==
LOC: N.2E 09:24
PROVIDERS: ADMIT Family Medicine; ATTEND Family Medicine

== ENCOUNTER 2021-04-16 14:01 | Inpatient (IN) ==
[2021-04-16] MEDS ORDERED: cefTRIAXone 1,000 MG in SODIUM CHLORIDE 0.9% 100 ML IV STA (14:39)
[2021-04-16 14:46] LABS: Basophils % 0.1 % (0.0-0.8); Hematocrit 25.8 VOL% (35.7-47.0); Hemoglobin 8.1 GM/DL (12.0-16.0); Immature Granulocytes % 1.2 %; Immature Granulocytes Absolute 0.29 #; Lymphocytes # 0.6 10*3/uL (1.4-4.0); Lymphocytes % 2.5 % (21.3-54.2); Mean Corpuscular HGB Conc 31.4 GM/DL (32-36); Mean Corpuscular Volume 88.4 FL (87-102); Mean Platelet Volume 8.7 FL (9.6-12.0); Monocytes % 6.5 % (1.7-12.7); NRBC # 0.02 10*3/uL; Neutrophils % 89.7 % (38.7-73.9); Platelet Count 491 T/CUMM (130-400); Red Blood Count 2.92 MC/CUMM (3.8-5.5); Red Cell Distribution Width 15.3 % (9.3-17.3); White Blood Count 23.2 T/CUMM (4-12)
[2021-04-16 15:09] LABS: Alanine Aminotransferase 17 U/L (13-56); Albumin 2.1 G/DL (3.4-5.0); Alkaline Phosphatase 99 U/L (45-117); Aspartate Amino Transferase 18 U/L (0-37); Blood Urea Nitrogen 33 MG/DL (7-18); Calcium 8.7 MG/DL (8.5-10.1); Carbon Dioxide 22 MMOL/L (21-32); Estimated Glom Filtration Rate 26 ML/MIN; Glucose 137 MG/DL (74-106); Osmolality,Calculated 291.1 MOS/KG (273-304); Sodium 142 MMOL/L (136-145); Total Protein 6.4 G/DL (6.4-8.2)
[2021-04-16] MEDS ORDERED: SODIUM CHLORIDE 0.9% 1,700 ML IV ONE (15:26)
[2021-04-16 15:27] LABS: Lymphocytes 2 % (20-55); Microcytosis Slight; Ovalocytes Slight; Segmented Neutrophils 94 % (50-85); Total Cells Counted 100
[2021-04-16] MEDS ORDERED: VANCOMYCIN INJ 1,000 MG in SODIUM CHLORIDE 0.9% 250 ML IV PRN (15:47)
[2021-04-16 16:23] LABS: Hyaline Casts,Urine 1 /LPF (0-3); Mucus,Urine Occasional /LPF (Occasional); RBC,Urine 2 /HPF (0-4); Squamous Epithelial Cell,Urine Occasional /HPF (0-10)
[2021-04-16 16:24] LABS: Protein,Urine Negative; Urine Appearance Clear (Clear); Urine Color Yellow (Yellow); Urine Specific Gravity 1.015 (1.001-1.035); Urine pH 5.5 (4.5-8.0)
[2021-04-16 16:25] LABS: Bilirubin,Urine Negative (Negative); Blood, Urine Trace mg/dL (Negative); Glucose,Urine (UA) Negative (Negative); Ketones,Urine Negative (Negative); Nitrite,Urine Positive (Negative); Urine Urobilinogen 0.2 EU/DL (<2.0)
[2021-04-16] MEDS ORDERED: POTASSIUM CHLORIDE 20 MEQ TABLET PO STA (16:27)
[2021-04-16] MEDS ORDERED: ONDANSETRON 4 MG/2 ML VIAL IV PRN (16:29)
[2021-04-16] MEDS ORDERED: VANCOMYCIN INJ 1,000 MG in SODIUM CHLORIDE 0.9% 250 ML IV ONE (17:00)
[2021-04-16] MEDS ORDERED: VANCOMYCIN INJ 750 MG in SODIUM CHLORIDE 0.9% 250 ML IV SCH (17:00)
[2021-04-16 17:24] LABS: Bilirubin,Total 0.5 MG/DL (0.20-1.00); Calcium 7.9 MG/DL (8.5-10.1); Osmolality,Calculated 295.7 MOS/KG (273-304); Potassium 2.8 MMOL/L (3.5-5.1); Total Protein 5.6 G/DL (6.4-8.2)
[2021-04-16] MEDS: SODIUM CHLORIDE 0.9% 1,000 ML IV SCH (18:20)
[2021-04-16] MEDS: ACETAMINOPHEN 325 MG TABLET PO PRN (20:54)
[2021-04-16] MEDS: DOCUSATE SODIUM 100 MG CAPSULE PO SCH (20:54)
[2021-04-17] MEDS: ACETAMINOPHEN 325 MG TABLET PO PRN (03:03)
[2021-04-17] MEDS: SODIUM CHLORIDE 0.9% 1,000 ML IV SCH (03:08)
[2021-04-17 05:52] LABS: Basophils # 0.1 10*3/uL (0.0-0.2); Basophils % 0.1 % (0.0-0.8); Hemoglobin 8.1 GM/DL (12.0-16.0); Immature Granulocytes % 1.5 %; Immature Granulocytes Absolute 0.62 #; Lymphocytes # 0.8 10*3/uL (1.4-4.0); Lymphocytes % 1.9 % (21.3-54.2); Mean Corpuscular HGB Conc 32.4 GM/DL (32-36); Mean Platelet Volume 8.8 FL (9.6-12.0); Monocytes % 5.4 % (1.7-12.7); Neutrophils % 91.1 % (38.7-73.9); Platelet Count 442 T/CUMM (130-400); Red Blood Count 2.84 MC/CUMM (3.8-5.5); Red Cell Distribution Width 15.6 % (9.3-17.3)
[2021-04-17 05:54] LABS: White Blood Count 41.7 T/CUMM (4-12)
[2021-04-17 06:09] LABS: Calcium 8.2 MG/DL (8.5-10.1); Potassium 2.7 MMOL/L (3.5-5.1)
[2021-04-17 06:19] LABS: Hypochromia 1+; Microcytosis 1+; Ovalocytes Slight; Platelet Estimate Adequate; Segmented Neutrophils 96 % (50-85); Total Cells Counted 100
[2021-04-17] MEDS ORDERED: POTASSIUM CHLORIDE INJ 20 MEQ in SODIUM CHLORIDE 0.9% 1,000 ML IV SCH (07:41)
[2021-04-17] MEDS ORDERED: PIPERACILLIN/TAZOBACTAM 4,500 MG in SODIUM CHLORIDE 0.9% 100 ML IV SCH (08:00)
[2021-04-17] MEDS: SODIUM CHLOR 0.9% KCL 20 MEQ 20 MEQ/1,000 ML BAG IV SCH ×2 (09:04→20:56)
[2021-04-17] MEDS: FERROUS SULFATE 325 MG TABLET PO SCH ×2 (09:05→16:55)
[2021-04-17] MEDS: DOCUSATE SODIUM 100 MG CAPSULE PO SCH ×4 (09:05→21:00)
[2021-04-17] MEDS: carvediloL 6.25 MG TABLET PO SCH (09:05)
[2021-04-17] MEDS: FUROSEMIDE 20 MG TABLET PO SCH (09:05)
[2021-04-17] MEDS: PANTOPRAZOLE 40 MG TABLET PO SCH (09:05)
[2021-04-17] MEDS: ASPIRIN CHEW 81 MG TABLET PO SCH (09:06)
[2021-04-17] MEDS: POTASSIUM CHLORIDE RIDER 10 MEQ/100 ML PREMIX IV SCH ×2 (09:06→10:16)
[2021-04-17] MEDS: OXYBUTYNIN 5 MG TABLET PO SCH ×3 (09:06→21:00)
[2021-04-17] MEDS: FLUoxetine 20 MG CAPSULE PO SCH (09:06)
[2021-04-17] MEDS: PIPERACILLIN/TAZOBACTAM 3,375 MG in SODIUM CHLORIDE 0.9% 100 ML IV SCH ×2 (10:06→16:56)
[2021-04-17] MEDS: VANCOMYCIN INJ 1,000 MG in SODIUM CHLORIDE 0.9% 250 ML IV SCH (12:47)
[2021-04-17] MEDS: ATORVASTATIN 40 MG TABLET PO SCH (21:00)
[2021-04-17] MEDS ORDERED: cloNIDine 0.1 MG TABLET PO SCH (21:00)
[2021-04-18] MEDS: PIPERACILLIN/TAZOBACTAM 3,375 MG in SODIUM CHLORIDE 0.9% 100 ML IV SCH ×3 (00:12→15:17)
[2021-04-18] MEDS: SODIUM CHLOR 0.9% KCL 20 MEQ 20 MEQ/1,000 ML BAG IV SCH ×3 (00:13→15:17)
[2021-04-18 06:46] LABS: Basophils # 0.1 10*3/uL (0.0-0.2); Basophils % 0.2 % (0.0-0.8); Eosinophils # 0.1 10*3/uL (0.0-0.87); Eosinophils % 0.2 % (0.00-10.9); Hematocrit 25.3 VOL% (35.7-47.0); Hemoglobin 7.9 GM/DL (12.0-16.0); Immature Granulocytes % 4.7 %; Immature Granulocytes Absolute 1.85 #; Lymphocytes # 0.9 10*3/uL (1.4-4.0); Lymphocytes % 2.4 % (21.3-54.2); Mean Corpuscular HGB Conc 31.2 GM/DL (32-36); Mean Corpuscular Volume 89.1 FL (87-102); Mean Platelet Volume 8.9 FL (9.6-12.0); Monocytes % 3.8 % (1.7-12.7); Neutrophils % 88.7 % (38.7-73.9); Platelet Count 431 T/CUMM (130-400); Red Blood Count 2.84 MC/CUMM (3.8-5.5); Red Cell Distribution Width 15.8 % (9.3-17.3); White Blood Count 39.1 T/CUMM (4-12)
[2021-04-18 07:13] LABS: Segmented Neutrophils 97 % (50-85); Total Cells Counted 100
[2021-04-18 07:14] LABS: Albumin 1.5 G/DL (3.4-5.0); Bilirubin,Total 0.8 MG/DL (0.20-1.00); Burr Cells Few; Calcium 8.1 MG/DL (8.5-10.1); Hypochromia 1+; Osmolality,Calculated 288.7 MOS/KG (273-304); Ovalocytes Few; Potassium 3.1 MMOL/L (3.5-5.1); Schistocytes Few; Total Protein 5.5 G/DL (6.4-8.2)
[2021-04-18 07:15] LABS: Platelet Estimate Increased
[2021-04-18] MEDS: PANTOPRAZOLE 40 MG TABLET PO SCH (08:18)
[2021-04-18] MEDS: ASPIRIN CHEW 81 MG TABLET PO SCH (08:18)
[2021-04-18] MEDS: FERROUS SULFATE 325 MG TABLET PO SCH ×2 (08:18→16:17)
[2021-04-18] MEDS: FLUoxetine 20 MG CAPSULE PO SCH (08:18)
[2021-04-18] MEDS: OXYBUTYNIN 5 MG TABLET PO SCH ×3 (08:18→20:43)
[2021-04-18] MEDS: carvediloL 6.25 MG TABLET PO SCH (08:18)
[2021-04-18] MEDS: DOCUSATE SODIUM 100 MG CAPSULE PO SCH ×4 (08:18→20:44)
[2021-04-18] MEDS: FUROSEMIDE 20 MG TABLET PO SCH (08:18)
[2021-04-18] MEDS: VANCOMYCIN INJ 1,000 MG in SODIUM CHLORIDE 0.9% 250 ML IV SCH (12:44)
[2021-04-18] MEDS: POTASSIUM CHLORIDE 20 MEQ TABLET PO SCH (15:17)
[2021-04-18] MEDS ORDERED: cloNIDine 0.1 MG TABLET PO ONE (17:15)
[2021-04-18] MEDS: ATORVASTATIN 40 MG TABLET PO SCH (20:43)
[2021-04-18] MEDS: cloNIDine 0.1 MG TABLET PO SCH (20:43)
[2021-04-19] MEDS: PIPERACILLIN/TAZOBACTAM 3,375 MG in SODIUM CHLORIDE 0.9% 100 ML IV SCH ×3 (00:03→15:30)
[2021-04-19] MEDS: SODIUM CHLOR 0.9% KCL 20 MEQ 20 MEQ/1,000 ML BAG IV SCH ×2 (00:03→21:20)
[2021-04-19 06:54] LABS: Basophils % 0.2 % (0.0-0.8); Eosinophils # 0.3 10*3/uL (0.0-0.87); Hematocrit 23.2 VOL% (35.7-47.0); Hemoglobin 7.1 GM/DL (12.0-16.0); Immature Granulocytes % 1.7 %; Immature Granulocytes Absolute 0.44 #; Lymphocytes # 0.8 10*3/uL (1.4-4.0); Lymphocytes % 3.1 % (21.3-54.2); Mean Corpuscular HGB Conc 30.6 GM/DL (32-36); Mean Corpuscular Volume 89.9 FL (87-102); Mean Platelet Volume 9.1 FL (9.6-12.0); Monocytes % 4.6 % (1.7-12.7); Neutrophils % 89.4 % (38.7-73.9); Platelet Count 349 T/CUMM (130-400); Red Blood Count 2.58 MC/CUMM (3.8-5.5); Red Cell Distribution Width 15.9 % (9.3-17.3); White Blood Count 25.8 T/CUMM (4-12)
[2021-04-19 07:07] LABS: Albumin 1.4 G/DL (3.4-5.0); Bilirubin,Total 0.4 MG/DL (0.20-1.00); Calcium 8.2 MG/DL (8.5-10.1); Potassium 3.4 MMOL/L (3.5-5.1); Total Protein 5.1 G/DL (6.4-8.2)
[2021-04-19] MEDS: OXYBUTYNIN 5 MG TABLET PO SCH ×3 (08:34→21:20)
[2021-04-19] MEDS: FLUoxetine 20 MG CAPSULE PO SCH (08:34)
[2021-04-19] MEDS: DOCUSATE SODIUM 100 MG CAPSULE PO SCH ×4 (08:34→21:20)
[2021-04-19] MEDS: ASPIRIN CHEW 81 MG TABLET PO SCH (08:34)
[2021-04-19] MEDS: cloNIDine 0.1 MG TABLET PO SCH ×2 (08:34→21:20)
[2021-04-19] MEDS: FERROUS SULFATE 325 MG TABLET PO SCH ×2 (08:34→16:14)
[2021-04-19] MEDS: PANTOPRAZOLE 40 MG TABLET PO SCH (08:34)
[2021-04-19] MEDS: FUROSEMIDE 20 MG TABLET PO SCH (08:34)
[2021-04-19] MEDS: POTASSIUM CHLORIDE 20 MEQ TABLET PO SCH (08:34)
[2021-04-19] MEDS: carvediloL 6.25 MG TABLET PO SCH (08:34)
[2021-04-19 09:13] LABS: Eosinophils 1 % (0-10); Hypersegmented Neutrophil 1+; Lymphocytes 1 % (20-55); Segmented Neutrophils 97 % (50-85); Total Cells Counted 100
[2021-04-19 09:14] LABS: Hypochromia 2+; Polychromasia Slight; Schistocytes 1+
[2021-04-19 09:15] LABS: Burr Cells Few; Elliptocytes Few; Ovalocytes 1+; Target Cells Slight
[2021-04-19 09:16] LABS: Platelet Estimate Normal
[2021-04-19] MEDS: VANCOMYCIN INJ 1,000 MG in SODIUM CHLORIDE 0.9% 250 ML IV SCH (13:30)
[2021-04-19] MEDS ORDERED: SODIUM CHLORIDE 0.9% 1,000 ML IV PRN (20:47)
[2021-04-19] MEDS ORDERED: MAGNESIUM SULF RIDER 2 GM/50 ML PREMIX IV ONE (20:58)
[2021-04-19] MEDS: ATORVASTATIN 40 MG TABLET PO SCH (21:20)
[2021-04-20] MEDS: SODIUM CHLOR 0.9% KCL 20 MEQ 20 MEQ/1,000 ML BAG IV SCH ×4 (02:18→17:30)
[2021-04-20] MEDS: PIPERACILLIN/TAZOBACTAM 3,375 MG in SODIUM CHLORIDE 0.9% 100 ML IV SCH ×2 (02:18→15:38)
[2021-04-20 06:13] LABS: Basophils % 0.2 % (0.0-0.8); Eosinophils # 0.5 10*3/uL (0.0-0.87); Eosinophils % 2.8 % (0.00-10.9); Hematocrit 26.1 VOL% (35.7-47.0); Hemoglobin 8.4 GM/DL (12.0-16.0); Immature Granulocytes % 1.2 %; Immature Granulocytes Absolute 0.22 #; Lymphocytes # 0.9 10*3/uL (1.4-4.0); Lymphocytes % 4.5 % (21.3-54.2); Mean Corpuscular HGB Conc 32.2 GM/DL (32-36); Mean Corpuscular Volume 88.5 FL (87-102); Mean Platelet Volume 8.8 FL (9.6-12.0); Monocytes % 7.7 % (1.7-12.7); Neutrophils % 83.6 % (38.7-73.9); Platelet Count 327 T/CUMM (130-400); Red Blood Count 2.95 MC/CUMM (3.8-5.5); Red Cell Distribution Width 15.3 % (9.3-17.3)
[2021-04-20 06:36] LABS: Albumin 1.5 G/DL (3.4-5.0); Bilirubin,Total 0.5 MG/DL (0.20-1.00); Calcium 8.3 MG/DL (8.5-10.1); Osmolality,Calculated 281.1 MOS/KG (273-304); Potassium 3.7 MMOL/L (3.5-5.1); Total Protein 5.3 G/DL (6.4-8.2)
[2021-04-20 06:38] LABS: Acanthocytes Few; Eosinophils 2 % (0-10); Hypochromia 1+; Lymphocytes 5 % (20-55); Microcytosis 1+; Segmented Neutrophils 87 % (50-85); Total Cells Counted 100
[2021-04-20 06:39] LABS: Ovalocytes Few; Platelet Estimate Normal; Target Cells Slight
[2021-04-20] MEDS: FLUoxetine 20 MG CAPSULE PO SCH (09:13)
[2021-04-20] MEDS: carvediloL 6.25 MG TABLET PO SCH (09:13)
[2021-04-20] MEDS: FUROSEMIDE 20 MG TABLET PO SCH (09:14)
[2021-04-20] MEDS: PANTOPRAZOLE 40 MG TABLET PO SCH (09:14)
[2021-04-20] MEDS: ASPIRIN CHEW 81 MG TABLET PO SCH (09:14)
[2021-04-20] MEDS: DOCUSATE SODIUM 100 MG CAPSULE PO SCH ×4 (09:15→20:59)
[2021-04-20] MEDS: POTASSIUM CHLORIDE 20 MEQ TABLET PO SCH (09:15)
[2021-04-20] MEDS: OXYBUTYNIN 5 MG TABLET PO SCH ×3 (09:15→20:59)
[2021-04-20] MEDS: cloNIDine 0.1 MG TABLET PO SCH ×2 (09:16→20:59)
[2021-04-20] MEDS: FERROUS SULFATE 325 MG TABLET PO SCH ×2 (09:16→16:30)
[2021-04-20] MEDS: cefTRIAXone 1,000 MG in SODIUM CHLORIDE 0.9% 100 ML IV SCH (15:04)
[2021-04-21] MEDS: SODIUM CHLOR 0.9% KCL 20 MEQ 20 MEQ/1,000 ML BAG IV SCH ×4 (01:34→20:42)
[2021-04-21 05:26] LABS: Basophils # 0.1 10*3/uL (0.0-0.2); Basophils % 0.3 % (0.0-0.8); Eosinophils # 0.6 10*3/uL (0.0-0.87); Eosinophils % 3.2 % (0.00-10.9); Hematocrit 27.2 VOL% (35.7-47.0); Hemoglobin 8.7 GM/DL (12.0-16.0); Immature Granulocytes % 1.2 %; Immature Granulocytes Absolute 0.22 #; Lymphocytes # 0.8 10*3/uL (1.4-4.0); Lymphocytes % 4.4 % (21.3-54.2); Mean Corpuscular Volume 86.6 FL (87-102); Mean Platelet Volume 9.1 FL (9.6-12.0); Monocytes % 10.6 % (1.7-12.7); Neutrophils % 80.3 % (38.7-73.9); Platelet Count 339 T/CUMM (130-400); Red Blood Count 3.14 MC/CUMM (3.8-5.5); Red Cell Distribution Width 15.7 % (9.3-17.3); White Blood Count 18.3 T/CUMM (4-12)
[2021-04-21 05:59] LABS: Eosinophils 4 % (0-10); Hypochromia 1+; Lymphocytes 2 % (20-55); Microcytosis 1+; Platelet Estimate Adequate; Segmented Neutrophils 85 % (50-85); Total Cells Counted 100
[2021-04-21 06:18] LABS: Albumin 1.5 G/DL (3.4-5.0); Bilirubin,Total 0.4 MG/DL (0.20-1.00); Calcium 8.3 MG/DL (8.5-10.1); Osmolality,Calculated 278.4 MOS/KG (273-304); Potassium 3.9 MMOL/L (3.5-5.1); Total Protein 5.4 G/DL (6.4-8.2)
[2021-04-21] MEDS: DOCUSATE SODIUM 100 MG CAPSULE PO SCH ×2 (08:52→20:36)
[2021-04-21] MEDS: FLUoxetine 20 MG CAPSULE PO SCH (08:52)
[2021-04-21] MEDS: FUROSEMIDE 20 MG TABLET PO SCH (08:52)
[2021-04-21] MEDS: FERROUS SULFATE 325 MG TABLET PO SCH ×2 (08:52→17:03)
[2021-04-21] MEDS: cloNIDine 0.1 MG TABLET PO SCH ×2 (08:52→20:36)
[2021-04-21] MEDS: OXYBUTYNIN 5 MG TABLET PO SCH ×3 (08:52→20:36)
[2021-04-21] MEDS: ASPIRIN CHEW 81 MG TABLET PO SCH (08:52)
[2021-04-21] MEDS: POTASSIUM CHLORIDE 20 MEQ TABLET PO SCH (08:52)
[2021-04-21] MEDS: carvediloL 6.25 MG TABLET PO SCH (08:53)
[2021-04-21] MEDS: PANTOPRAZOLE 40 MG TABLET PO SCH (08:53)
[2021-04-21] MEDS ORDERED: amLODIPine 5 MG TABLET PO SCH (09:00)
[2021-04-21] MEDS: cefTRIAXone 1,000 MG in SODIUM CHLORIDE 0.9% 100 ML IV SCH (16:14)
[2021-04-21] MEDS ORDERED: cefTRIAXone 1,000 MG in SODIUM CHLORIDE 0.9% 100 ML IV SCH (16:30)
[2021-04-22 06:01] LABS: Basophils # 0.1 10*3/uL (0.0-0.2); Basophils % 0.3 % (0.0-0.8); Eosinophils # 0.5 10*3/uL (0.0-0.87); Eosinophils % 2.8 % (0.00-10.9); Hematocrit 26.7 VOL% (35.7-47.0); Hemoglobin 8.3 GM/DL (12.0-16.0); Immature Granulocytes % 1.1 %; Immature Granulocytes Absolute 0.17 #; Lymphocytes # 0.7 10*3/uL (1.4-4.0); Lymphocytes % 4.4 % (21.3-54.2); Mean Corpuscular HGB Conc 31.1 GM/DL (32-36); Mean Corpuscular Volume 88.1 FL (87-102); Mean Platelet Volume 9.9 FL (9.6-12.0); Monocytes % 9.4 % (1.7-12.7); Platelet Count 302 T/CUMM (130-400); Red Blood Count 3.03 MC/CUMM (3.8-5.5); Red Cell Distribution Width 15.8 % (9.3-17.3)
[2021-04-22 06:10] LABS: Calcium 7.7 MG/DL (8.5-10.1); Osmolality,Calculated 272.7 MOS/KG (273-304); Potassium 4.3 MMOL/L (3.5-5.1)
[2021-04-22 06:23] LABS: Eosinophils 4 % (0-10); Hypochromia 1+; Lymphocytes 6 % (20-55); Microcytosis 1+; Platelet Estimate Adequate; Segmented Neutrophils 85 % (50-85); Total Cells Counted 100
[2021-04-22] MEDS: SODIUM CHLOR 0.9% KCL 20 MEQ 20 MEQ/1,000 ML BAG IV SCH ×2 (06:24→07:01)
[2021-04-22] MEDS: cloNIDine 0.1 MG TABLET PO SCH ×2 (09:34→21:48)
[2021-04-22] MEDS: ASPIRIN CHEW 81 MG TABLET PO SCH (09:34)
[2021-04-22] MEDS: amLODIPine 10 MG TABLET PO SCH (09:35)
[2021-04-22] MEDS: FLUoxetine 20 MG CAPSULE PO SCH (09:35)
[2021-04-22] MEDS: FERROUS SULFATE 325 MG TABLET PO SCH ×2 (09:35→17:15)
[2021-04-22] MEDS: PANTOPRAZOLE 40 MG TABLET PO SCH (09:35)
[2021-04-22] MEDS: POTASSIUM CHLORIDE 20 MEQ TABLET PO SCH (09:35)
[2021-04-22] MEDS: OXYBUTYNIN 5 MG TABLET PO SCH ×3 (09:35→21:48)
[2021-04-22] MEDS: DOCUSATE SODIUM 100 MG CAPSULE PO SCH ×2 (09:35→21:48)
[2021-04-22] MEDS: carvediloL 6.25 MG TABLET PO SCH (09:35)
[2021-04-22] MEDS: FUROSEMIDE 20 MG TABLET PO SCH (09:35)
[2021-04-23] MEDS: SODIUM CHLOR 0.9% KCL 20 MEQ 20 MEQ/1,000 ML BAG IV SCH ×2 (00:43→01:10)
[2021-04-23 06:35] LABS: Basophils # 0.1 10*3/uL (0.0-0.2); Basophils % 0.5 % (0.0-0.8); Eosinophils # 0.3 10*3/uL (0.0-0.87); Eosinophils % 2.4 % (0.00-10.9); Hemoglobin 8.7 GM/DL (12.0-16.0); Immature Granulocytes % 1.2 %; Immature Granulocytes Absolute 0.17 #; Lymphocytes # 0.6 10*3/uL (1.4-4.0); Lymphocytes % 4.5 % (21.3-54.2); Mean Corpuscular HGB Conc 31.1 GM/DL (32-36); Mean Corpuscular Volume 86.7 FL (87-102); Mean Platelet Volume 9.5 FL (9.6-12.0); Monocytes % 8.4 % (1.7-12.7); Platelet Count 275 T/CUMM (130-400); Red Blood Count 3.23 MC/CUMM (3.8-5.5); Red Cell Distribution Width 15.3 % (9.3-17.3); White Blood Count 13.6 T/CUMM (4-12)
[2021-04-23 06:55] LABS: Eosinophils 2 % (0-10); Hypochromia 1+; Lymphocytes 1 % (20-55); Microcytosis 1+; Platelet Estimate Adequate; Segmented Neutrophils 96 % (50-85); Total Cells Counted 100
[2021-04-23 06:58] LABS: Calcium 8.3 MG/DL (8.5-10.1); Osmolality,Calculated 273.7 MOS/KG (273-304); Potassium 4.2 MMOL/L (3.5-5.1)
[2021-04-23 09:01] VITALS: BP 172/86
[2021-04-23] MEDS: amLODIPine 10 MG TABLET PO SCH (09:01)
[2021-04-23] MEDS: ASPIRIN CHEW 81 MG TABLET PO SCH (09:01)
[2021-04-23] MEDS: PANTOPRAZOLE 40 MG TABLET PO SCH (09:01)
[2021-04-23] MEDS: FUROSEMIDE 20 MG TABLET PO SCH (09:01)
[2021-04-23] MEDS: FERROUS SULFATE 325 MG TABLET PO SCH (09:01)
[2021-04-23] MEDS: POTASSIUM CHLORIDE 20 MEQ TABLET PO SCH (09:01)
[2021-04-23] MEDS: FLUoxetine 20 MG CAPSULE PO SCH (09:01)
[2021-04-23] MEDS: DOCUSATE SODIUM 100 MG CAPSULE PO SCH (09:01)
[2021-04-23] MEDS: carvediloL 6.25 MG TABLET PO SCH (09:01)
[2021-04-23] MEDS: OXYBUTYNIN 5 MG TABLET PO SCH (09:01)
[2021-04-23] MEDS: cloNIDine 0.1 MG TABLET PO SCH (09:01)
== END 2021-04-23 10:45 | disposition home health service (06) | DRG 155 ==
LOC: N.ED 14:01 → N.EDINP 14:01 → N.3E 19:07
PROVIDERS: ADMIT Family Medicine; ATTEND Family Medicine

== ENCOUNTER 2021-06-02 17:29 | Inpatient (IN) ==
[2021-06-02] MEDS ORDERED: SODIUM CHLORIDE 0.9% 500 ML IV STA (18:38)
[2021-06-02 18:50] LABS: Basophils # 0.1 10*3/uL (0.0-0.2); Basophils % 0.5 % (0.0-0.8); Eosinophils # 0.1 10*3/uL (0.0-0.87); Eosinophils % 0.7 % (0.00-10.9); Hematocrit 25.9 VOL% (35.7-47.0); Hemoglobin 7.7 GM/DL (12.0-16.0); Immature Granulocytes Absolute 0.17 #; Lymphocytes # 0.4 10*3/uL (1.4-4.0); Lymphocytes % 2.4 % (21.3-54.2); Mean Corpuscular HGB Conc 29.7 GM/DL (32-36); Mean Platelet Volume 8.7 FL (9.6-12.0); Monocytes # 0.5 10*3/uL (0.11-0.8); Neutrophils % 92.4 % (38.7-73.9); Platelet Count 341 T/CUMM (130-400); Red Blood Count 3.12 MC/CUMM (3.8-5.5); Red Cell Distribution Width 15.9 % (9.3-17.3); White Blood Count 16.6 T/CUMM (4-12)
[2021-06-02 19:09] LABS: Alanine Aminotransferase 13 U/L (13-56); Albumin 1.7 G/DL (3.4-5.0); Alkaline Phosphatase 109 U/L (45-117); Aspartate Amino Transferase 15 U/L (0-37); Blood Urea Nitrogen 19 MG/DL (7-18); Calcium 8.4 MG/DL (8.5-10.1); Carbon Dioxide 28 MMOL/L (21-32); Chloride 103 MMOL/L (98-107); Estimated Glom Filtration Rate 45 ML/MIN; Glucose 136 MG/DL (74-106); Osmolality,Calculated 276.8 MOS/KG (273-304); Potassium 2.9 MMOL/L (3.5-5.1); Sodium 137 MMOL/L (136-145); Total Protein 5.8 G/DL (6.4-8.2)
[2021-06-02 19:27] LABS: Bacteria,Urine Occasional /HPF (Few)
[2021-06-02 19:29] LABS: Bilirubin,Urine Negative (Negative); Glucose,Urine (UA) Negative (Negative); Ketones,Urine Negative (Negative); Nitrite,Urine Negative (Negative); Protein,Urine 30 mg/dL (Negative); Urine Appearance Clear (Clear); Urine Color Yellow (Yellow); Urine pH 5.5 (4.5-8.0)
[2021-06-02 19:30] LABS: Blood, Urine Trace mg/dL (Negative)
[2021-06-02 19:41] LABS: Barbiturates Screen,Urine Negative (Negative); Benzodiazepines Screen,Urine Negative (Negative); Cannabinoid Screen,Urine Negative (Negative); Opiate Screen,Urine Negative (Negative); Phencyclidine Screen,Urine Negative (Negative)
[2021-06-02] MEDS ORDERED: POTASSIUM CHLORIDE RIDER 20 MEQ/100 ML PREMIX IV STA (19:45)
[2021-06-02] MEDS ORDERED: cefTRIAXone 1,000 MG in SODIUM CHLORIDE 0.9% 100 ML IV STA (19:45)
[2021-06-02] MEDS ORDERED: POTASSIUM CHLORIDE RIDER 10 MEQ/100 ML PREMIX IV ONE ×3 (20:01→20:56)
[2021-06-02 20:20] LABS: Anisocytosis 1+; Burr Cells Few; Eosinophils 2 % (0-10); Lymphocytes 1 % (20-55); Total Cells Counted 100
[2021-06-02 20:21] LABS: Toxic Granulation 1+
[2021-06-02 20:22] LABS: Platelet Estimate Increased
[2021-06-02] MEDS ORDERED: MAGNESIUM SULF RIDER 2 GM/50 ML PREMIX IV STA (20:27)
[2021-06-02] MEDS ORDERED: ACETAMINOPHEN 325 MG TABLET PO PRN (23:47)
[2021-06-02] MEDS ORDERED: ONDANSETRON 4 MG/2 ML VIAL IV PRN (23:47)
[2021-06-03] MEDS: SODIUM CHLORIDE 0.9% 1,000 ML IV SCH ×2 (00:12→09:25)
[2021-06-03] MEDS: DOCUSATE SODIUM 100 MG CAPSULE PO SCH ×4 (00:17→21:36)
[2021-06-03] MEDS: ENOXAPARIN 40 MG/0.4 ML SYRINGE SUBCUT SCH ×2 (00:19→21:36)
[2021-06-03 05:26] LABS: Basophils # 0.1 10*3/uL (0.0-0.2); Basophils % 0.4 % (0.0-0.8); Eosinophils # 0.1 10*3/uL (0.0-0.87); Eosinophils % 0.8 % (0.00-10.9); Hematocrit 22.7 VOL% (35.7-47.0); Hemoglobin 6.9 GM/DL (12.0-16.0); Immature Granulocytes % 0.8 %; Immature Granulocytes Absolute 0.09 #; Lymphocytes % 8.6 % (21.3-54.2); Mean Corpuscular HGB Conc 30.4 GM/DL (32-36); Mean Corpuscular Volume 80.5 FL (87-102); Monocytes # 0.9 10*3/uL (0.11-0.8); Monocytes % 7.4 % (1.7-12.7); Platelet Count 276 T/CUMM (130-400); Red Blood Count 2.82 MC/CUMM (3.8-5.5); Red Cell Distribution Width 15.8 % (9.3-17.3)
[2021-06-03 05:43] LABS: Albumin 1.4 G/DL (3.4-5.0); Bilirubin,Total 0.4 MG/DL (0.20-1.00); Calcium 8.3 MG/DL (8.5-10.1); Osmolality,Calculated 279.4 MOS/KG (273-304); Potassium 2.7 MMOL/L (3.5-5.1); Risk Ratio 2.91; Total Protein 5.4 G/DL (6.4-8.2); VLDL Cholesterol 13.6 MG/DL
[2021-06-03] MEDS: POTASSIUM CHLORIDE RIDER 10 MEQ/100 ML PREMIX IV PRN ×3 (06:27→11:27)
[2021-06-03 08:46] LABS: Basophils # 0.1 10*3/uL (0.0-0.2); Basophils % 0.5 % (0.0-0.8); Eosinophils # 0.1 10*3/uL (0.0-0.87); Eosinophils % 1.1 % (0.00-10.9); Hematocrit 25.4 VOL% (35.7-47.0); Hemoglobin 7.7 GM/DL (12.0-16.0); Immature Granulocytes % 0.6 %; Immature Granulocytes Absolute 0.07 #; Lymphocytes # 0.7 10*3/uL (1.4-4.0); Lymphocytes % 6.4 % (21.3-54.2); Mean Corpuscular HGB Conc 30.3 GM/DL (32-36); Mean Corpuscular Volume 80.4 FL (87-102); Mean Platelet Volume 8.7 FL (9.6-12.0); Monocytes # 0.7 10*3/uL (0.11-0.8); Monocytes % 6.7 % (1.7-12.7); Neutrophils % 84.7 % (38.7-73.9); Platelet Count 301 T/CUMM (130-400); Red Blood Count 3.16 MC/CUMM (3.8-5.5); Red Cell Distribution Width 15.8 % (9.3-17.3)
[2021-06-03] MEDS: cefTRIAXone 1,000 MG in SODIUM CHLORIDE 0.9% 100 ML IV SCH (09:20)
[2021-06-03] MEDS: PANTOPRAZOLE 40 MG VIAL IV SCH (09:21)
[2021-06-03] MEDS: FERROUS SULFATE 325 MG TABLET PO SCH ×3 (09:24→21:36)
[2021-06-03] MEDS: carvediloL 6.25 MG TABLET PO SCH ×2 (09:24→14:47)
[2021-06-03] MEDS: ASPIRIN CHEW 81 MG TABLET PO SCH ×2 (09:24→14:47)
[2021-06-03] MEDS: OXYBUTYNIN 5 MG TABLET PO SCH ×3 (09:24→21:37)
[2021-06-03] MEDS: POTASSIUM CHLORIDE 10 MEQ TABLET PO SCH ×3 (09:25→21:36)
[2021-06-03] MEDS: FUROSEMIDE 20 MG TABLET PO SCH ×2 (09:25→14:48)
[2021-06-03] MEDS: FLUoxetine 20 MG CAPSULE PO SCH ×2 (09:25→14:47)
[2021-06-03 09:27] LABS: Folate > 24.00 NG/ML (5.38-24.0); Vitamin B12 379 PG/ML (211-911)
[2021-06-03 09:57] LABS: Sedimentation Rate-Westergren 75 MM/HR (0-30)
[2021-06-03] MEDS: SODIUM CHLOR 0.9% KCL 20 MEQ 20 MEQ/1,000 ML BAG IV SCH ×2 (11:27→21:37)
[2021-06-03 14:35] LABS: Hematocrit 25.9 VOL% (35.7-47.0); Hemoglobin 7.7 GM/DL (12.0-16.0)
[2021-06-03] MEDS ORDERED: cloNIDine 0.1 MG TABLET PO SCH (21:00)
[2021-06-03] MEDS: ATORVASTATIN 40 MG TABLET PO SCH (21:37)
[2021-06-04 04:53] LABS: Basophils # 0.1 10*3/uL (0.0-0.2); Basophils % 0.5 % (0.0-0.8); Eosinophils # 0.1 10*3/uL (0.0-0.87); Eosinophils % 1.1 % (0.00-10.9); Hematocrit 24.5 VOL% (35.7-47.0); Hemoglobin 7.3 GM/DL (12.0-16.0); Immature Granulocytes % 0.6 %; Immature Granulocytes Absolute 0.06 #; Lymphocytes # 0.8 10*3/uL (1.4-4.0); Mean Corpuscular HGB Conc 29.8 GM/DL (32-36); Mean Corpuscular Volume 80.3 FL (87-102); Mean Platelet Volume 9.1 FL (9.6-12.0); Monocytes % 10.4 % (1.7-12.7); Neutrophils % 78.4 % (38.7-73.9); Platelet Count 291 T/CUMM (130-400); Red Blood Count 3.05 MC/CUMM (3.8-5.5); White Blood Count 9.3 T/CUMM (4-12)
[2021-06-04 05:24] LABS: Albumin 1.4 G/DL (3.4-5.0); Bilirubin,Total 0.5 MG/DL (0.20-1.00); Calcium 8.3 MG/DL (8.5-10.1); Osmolality,Calculated 272.8 MOS/KG (273-304); Potassium 3.6 MMOL/L (3.5-5.1); Thyroid Stimulating Hormone 1.81 uIU/ml (0.358-3.74); Total Protein 5.6 G/DL (6.4-8.2)
[2021-06-04] MEDS: OXYBUTYNIN 5 MG TABLET PO SCH (08:46)
[2021-06-04] MEDS: ASPIRIN CHEW 81 MG TABLET PO SCH (08:46)
[2021-06-04] MEDS: POTASSIUM CHLORIDE 10 MEQ TABLET PO SCH ×2 (08:46→20:32)
[2021-06-04] MEDS: cefTRIAXone 1,000 MG in SODIUM CHLORIDE 0.9% 100 ML IV SCH (08:46)
[2021-06-04] MEDS: PANTOPRAZOLE 40 MG VIAL IV SCH (08:47)
[2021-06-04] MEDS: FLUoxetine 20 MG CAPSULE PO SCH (08:47)
[2021-06-04] MEDS: DOCUSATE SODIUM 100 MG CAPSULE PO SCH ×2 (08:47→20:33)
[2021-06-04] MEDS: FERROUS SULFATE 325 MG TABLET PO SCH ×2 (08:47→20:32)
[2021-06-04] MEDS: FUROSEMIDE 20 MG TABLET PO SCH (08:47)
[2021-06-04] MEDS: SODIUM CHLOR 0.9% KCL 20 MEQ 20 MEQ/1,000 ML BAG IV SCH ×2 (09:23→20:28)
[2021-06-04] MEDS: carvediloL 6.25 MG TABLET PO SCH ×2 (09:24→20:33)
[2021-06-04] MEDS: cloNIDine 0.1 MG TABLET PO SCH ×2 (11:01→20:32)
[2021-06-04] MEDS: ATORVASTATIN 40 MG TABLET PO SCH (20:32)
[2021-06-04] MEDS: ENOXAPARIN 40 MG/0.4 ML SYRINGE SUBCUT SCH (20:32)
[2021-06-05 04:56] LABS: Basophils % 0.3 % (0.0-0.8); Eosinophils # 0.1 10*3/uL (0.0-0.87); Hematocrit 24.1 VOL% (35.7-47.0); Hemoglobin 7.2 GM/DL (12.0-16.0); Immature Granulocytes % 0.5 %; Immature Granulocytes Absolute 0.05 #; Lymphocytes # 0.8 10*3/uL (1.4-4.0); Lymphocytes % 8.7 % (21.3-54.2); Mean Corpuscular HGB Conc 29.9 GM/DL (32-36); Mean Corpuscular Volume 80.3 FL (87-102); Mean Platelet Volume 8.9 FL (9.6-12.0); Monocytes # 0.9 10*3/uL (0.11-0.8); Monocytes % 9.3 % (1.7-12.7); Neutrophils % 80.2 % (38.7-73.9); Platelet Count 282 T/CUMM (130-400); Red Cell Distribution Width 15.9 % (9.3-17.3); White Blood Count 9.2 T/CUMM (4-12)
[2021-06-05 05:12] LABS: Albumin 1.4 G/DL (3.4-5.0); Bilirubin,Total 0.4 MG/DL (0.20-1.00); Calcium 7.9 MG/DL (8.5-10.1); Osmolality,Calculated 274.7 MOS/KG (273-304); Potassium 3.9 MMOL/L (3.5-5.1); Total Protein 5.5 G/DL (6.4-8.2)
[2021-06-05] MEDS: SODIUM CHLOR 0.9% KCL 20 MEQ 20 MEQ/1,000 ML BAG IV SCH ×2 (06:13→18:28)
[2021-06-05 08:37] LABS: Hemoglobin A1 (Alkaline) 98.3 % (96.5-98.5); Hemoglobin A2 (Alkaline) 1.7 % (1.5-3.5)
[2021-06-05] MEDS: ASPIRIN CHEW 81 MG TABLET PO SCH (09:22)
[2021-06-05] MEDS: FERROUS SULFATE 325 MG TABLET PO SCH ×2 (09:23→21:20)
[2021-06-05] MEDS: FLUoxetine 20 MG CAPSULE PO SCH (09:23)
[2021-06-05] MEDS: carvediloL 6.25 MG TABLET PO SCH ×2 (09:23→21:20)
[2021-06-05] MEDS: DOCUSATE SODIUM 100 MG CAPSULE PO SCH ×2 (09:23→21:20)
[2021-06-05] MEDS: FUROSEMIDE 20 MG TABLET PO SCH (09:23)
[2021-06-05] MEDS: cloNIDine 0.1 MG TABLET PO SCH ×2 (09:23→21:20)
[2021-06-05] MEDS: POTASSIUM CHLORIDE 10 MEQ TABLET PO SCH ×2 (09:23→21:20)
[2021-06-05] MEDS: PANTOPRAZOLE 40 MG VIAL IV SCH (09:24)
[2021-06-05] MEDS: cefTRIAXone 1,000 MG in SODIUM CHLORIDE 0.9% 100 ML IV SCH (10:38)
[2021-06-05] MEDS: ATORVASTATIN 40 MG TABLET PO SCH (21:19)
[2021-06-05] MEDS: ENOXAPARIN 40 MG/0.4 ML SYRINGE SUBCUT SCH (21:20)
[2021-06-06 04:51] LABS: Basophils # 0.1 10*3/uL (0.0-0.2); Basophils % 0.5 % (0.0-0.8); Eosinophils # 0.1 10*3/uL (0.0-0.87); Eosinophils % 1.2 % (0.00-10.9); Hematocrit 21.6 VOL% (35.7-47.0); Hemoglobin 6.5 GM/DL (12.0-16.0); Immature Granulocytes % 0.6 %; Immature Granulocytes Absolute 0.07 #; Lymphocytes % 8.6 % (21.3-54.2); Mean Corpuscular HGB Conc 30.1 GM/DL (32-36); Mean Corpuscular Volume 80.9 FL (87-102); Mean Platelet Volume 8.9 FL (9.6-12.0); Monocytes % 8.9 % (1.7-12.7); Neutrophils % 80.2 % (38.7-73.9); Platelet Count 293 T/CUMM (130-400); Red Blood Count 2.67 MC/CUMM (3.8-5.5); Red Cell Distribution Width 15.9 % (9.3-17.3)
[2021-06-06 05:17] LABS: Alanine Aminotransferase 10 U/L (13-56); Albumin 1.4 G/DL (3.4-5.0); Alkaline Phosphatase 83 U/L (45-117); Aspartate Amino Transferase 12 U/L (0-37); Bilirubin,Total < 0.39 MG/DL (0.20-1.00); Blood Urea Nitrogen 21 MG/DL (7-18); Calcium 7.9 MG/DL (8.5-10.1); Carbon Dioxide 27 MMOL/L (21-32); Chloride 109 MMOL/L (98-107); Estimated Glom Filtration Rate 74 ML/MIN; Glucose 103 MG/DL (74-106); Osmolality,Calculated 279.5 MOS/KG (273-304); Potassium 4.3 MMOL/L (3.5-5.1); Sodium 139 MMOL/L (136-145); Total Protein 5.2 G/DL (6.4-8.2)
[2021-06-06] MEDS: DOCUSATE SODIUM 100 MG CAPSULE PO SCH (10:36)
[2021-06-06] MEDS: FLUoxetine 20 MG CAPSULE PO SCH (10:36)
[2021-06-06] MEDS: ASPIRIN CHEW 81 MG TABLET PO SCH (10:36)
[2021-06-06] MEDS: FERROUS SULFATE 325 MG TABLET PO SCH (10:36)
[2021-06-06] MEDS: PANTOPRAZOLE 40 MG VIAL IV SCH (10:37)
[2021-06-06] MEDS: POTASSIUM CHLORIDE 10 MEQ TABLET PO SCH (10:37)
[2021-06-06] MEDS: FUROSEMIDE 20 MG TABLET PO SCH (10:37)
[2021-06-06] MEDS: cefTRIAXone 1,000 MG in SODIUM CHLORIDE 0.9% 100 ML IV SCH (10:38)
[2021-06-06] MEDS: cloNIDine 0.1 MG TABLET PO SCH (10:38)
[2021-06-06] MEDS: carvediloL 6.25 MG TABLET PO SCH (11:52)
[2021-06-06] MEDS: SODIUM CHLOR 0.9% KCL 20 MEQ 20 MEQ/1,000 ML BAG IV SCH (16:18)
[2021-06-06 17:13] VITALS: BP 134/73
== END 2021-06-06 19:47 | disposition expired | DRG 689 ==
LOC: N.ED 17:29 → N.TELES 20:28 → N.TELEN 21:39
PROVIDERS: ADMIT Family Medicine; ATTEND Family Medicine